=== PATIENT | male | born 1995 | race African-American/Black ===

== ENCOUNTER 2018-09-14 12:38 | Emergency (ER) | payer OTHER ==
[2018-09-14] MEDS: cefTRIAXone SOD 250 MG VIAL (J0696) IM (13:39)
[2018-09-14] MEDS: AZITHROMYCIN 250 MG TAB PO (13:39)
[2018-09-14 15:07] LABS: CHLAMYDIA DNA AMPLIFICATION POSITIVE (NEGATIVE); GC DNA AMPLIFICATION NEGATIVE (NEGATIVE)
== END 2018-09-14 14:08 | disposition home or self-care (01) ==
LOC: M ED 12:38
DX: A74.9 Chlamydial infection, unspecified (principal); Z20.2 Contact with and (suspected) exposure to infections with a predominantly sexual mode of transmission; F17.200 Nicotine dependence, unspecified, uncomplicated
CPT/HCPCS: J0696